=== PATIENT | male | born 1980 | race American Indian/Alaskan Native ===

== ENCOUNTER 2018-04-24 05:52 | Day surgery (SDC) | payer BC ==
[2018-04-17 08:46] VITALS: BMI 30.5
[2018-04-24] MEDS ORDERED: Lidocaine/Epinephrine 1% 1:100000 10 ML IJ ONE (07:20)
[2018-04-24] MEDS ORDERED: ceFAZolin IV 1 gm in Dextrose 2 GM/100 ML BAG IVPB ONE (07:20)
[2018-04-24] MEDS ORDERED: Bupivacaine 0.25% 20 ML INJ IJ ONE ×2 (07:20→07:31)
[2018-04-24] MEDS ORDERED: Bupivacaine HCl 0.5% PF (30 ml) Inj ONE (07:26)
[2018-04-24] MEDS ORDERED: Succinylcholine Chloride 20 mg/ml Syr (5 ml) IV ONE (08:32)
[2018-04-24] MEDS ORDERED: Propofol 10 mg/ml Inj (20 ML) ONE (08:32)
[2018-04-24] MEDS ORDERED: Rocuronium 10 mg/ml (5 ml) ONE ×2 (08:32→08:55)
[2018-04-24] MEDS ORDERED: Midazolam 2 MG/2 ML VIAL ONE (08:33)
[2018-04-24] MEDS ORDERED: Esmolol 100 mg/10ml Inj IV ONE (09:02)
[2018-04-24] MEDS ORDERED: Neostigmine Methylsulfate 3mg/3ml Syringe IV ONE (11:00)
[2018-04-24] MEDS ORDERED: HYDROmorphone 0.5 mg/0.5 ml ISec IVP PRN (11:19)
--- NOTE | 2018-04-24 11:20 | PCM.SURG1 ---
Surgeon's Initial Post Op Note - Surgeon's Notes Surgeon: Micah Adjudication Specialist: PGY4, Tammie CALLAWAY Type of Anesthesia: General Endo Pre-Operative Diagnosis: Umbilical hernia Operative Findings: Small umbilical hernia, small Left inguinal hernia Post-Operative Diagnosis: Umbilical hernia Operation Performed: Robotic assisted laparoscopic umbilical hernia repair with mesh Specimen/Specimens Removed: N/A Estimated Blood Loss: EBL {In ML}: 5 Blood Products Given: N/A Drains Used: No Drains Post-Op Condition: Good Date of Surgery/Procedure: 04/24/18 Time of Surgery/Procedure: 08:00
[2018-04-24] MEDS ORDERED: Oxycodone/Acetaminophen 5/325 mg Tab PO ONE (11:27)
[2018-04-24 13:14] VITALS: RESP 18
[2018-04-24] MEDS: Oxycodone/Acetaminophen 5/325 mg Tab PO ONE ×2 (13:16→13:17)
[2018-04-24 15:00] VITALS: BP 118/64; PULSE 72; TEMP 97.8; O2SAT 97
--- NOTE | 2018-04-24 22:05 | OP ---
PROCEDURE DATE: 04/24/2018 PREOPERATIVE DIAGNOSES: 1. Umbilical hernia. 2. Abdominal pain. POSTOPERATIVE DIAGNOSES: 1. Incarcerated umbilical hernia containing preperitoneal fat. 2. Morbid obesity. PROCEDURES DONE: 1. Robotic umbilical hernia repair with mesh. 2. Laparoscopic bilateral transverse abdominis plane block placement. SURGEON: Rangel Obrien MD ASSISTANTS: NILTON Gastelum and Kian Ram, PGY-4, resident. ANESTHESIA: General endotracheal tube anesthesia. ESTIMATED BLOOD LOSS: Around 10 mL. DRAINS: None. PATHOLOGY: None. COMPLICATIONS: None. INTRAOPERATIVE FINDINGS: The patient had an approximately 1 x 1 cm umbilical hernia containing preperitoneal fat, that was reduced back into the peritoneal cavity. DESCRIPTION OF PROCEDURE: On intraoperative steps, this is a 37-year-old male who was seen in the [place] [facility] for severe abdominal pain and the patient was diagnosed with umbilical hernia. The patient was seen in my office and was consented for robotic umbilical hernia repair with a mesh. Brought to the OR, placed supine on the operating table. After induction of the anesthesia, the abdomen was prepped and draped in the usual sterile fashion. A left upper quadrant incision was made using the Visiport technique. The peritoneal cavity was entered. The pneumo was created. Another 2-8 mm port was placed in the left upper quadrant and the left lower quadrant. Robot was brought in. Camera arm as well as arm 1 and arm 2 were docked. The pneumo was created underneath the peritoneum using the Veress needle to facilitate dissection. Now, the peritoneum was dissected and the dissection was carried down all the way on the right side, and the hernia sac and content was reduced back into the peritoneal cavity. Now, the defect was closed with #1 Prolene V-Loc suture in two layers. The 6 x 8 cm mesh was introduced and the mesh was placed. It was sutured with 3-0 PDS continuous suture. The defect in the peritoneum was closed with 3-0 PDS and part of the peritoneum was tacked against the mesh to prevent any seroma formation. After that, procedure was converted to laparoscopic. After removing the instrument and undocking the robot and bilateral TAP block was given, 30:30 mL of Marcaine was injected on the right and the left transverse abdominis muscle plane block. After that, all the ports were taken out under vision. Pneumo was deflated. Umbilical needle entry site as well as all the port sites were closed with 4-0 Monocryl, and dry sterile dressing was applied. The patient tolerated the procedure well. Count of instrument and gauze was correct. There was no apparent complication. During intraoperative exploration, the third part of the operation was laparoscopic exploration, the patient was found to have a left inguinal hernia that will be planned in the future for repair if it becomes symptomatic. Rangel Obrien, MDDD: 04/24/2018 11:28:38
== END 2018-04-24 15:00 | disposition home or self-care (01) ==
LOC: C.SDS 05:52
PROVIDERS: ATTEND Surgery Surgical Critical Care
DX: K42.0 Umbilical hernia with obstruction, without gangrene (principal); E66.01 Morbid (severe) obesity due to excess calories
CPT/HCPCS: 49653; 64488; J0690; J1170; J1885; J2001; J2250; J2405; J2704; J2710; J3010

== ENCOUNTER 2018-04-29 12:50 | Emergency (ER) | payer BC ==
[2018-04-29 12:50] VITALS: BMI 30.5
[2018-04-29 13:05] VITALS: TEMP 98.2
[2018-04-29] MEDS ORDERED: Sodium Chloride 0.9% 1,000 ML IV ONE (13:23)
--- NOTE | 2018-04-29 13:32 | C.PDOC ---
History Of Present Illness 37 y/o male presents to ED c/o worsening abdominal pain at incision site over the last 2 days. Pt had periumbilical hernia repair surgery on 04/24/[address] Obrien. Notes pain is 8/10 in severity. He reports one episode of burning on urination. He has been taking prescribed Percocet and Colace. Last BM was today. Denies fever, chills, or any other complaints at this time. Time Seen by Provider: 04/29/18 13:05 Chief Complaint (Nursing): Abdominal Pain History Per: Patient History/Exam Limitations: no limitations Onset/Duration Of Symptoms: Days Current Symptoms Are (Timing): Still Present Severity: Severe Pain Scale Rating Of: 8 Location Of Pain/Discomfort: Periumbilical Quality Of Discomfort: "Pain" Recent travel outside of the [place]: No Additional History Per: Patient Past Medical History Reviewed: Historical Data, Nursing Documentation, Vital Signs Vital Signs: Last Vital Signs Temp 98.2 F 04/29/18 13:05 Pulse 55 L 04/29/18 13:05 Resp BP 157/104 H 04/29/18 13:05 Pulse Ox 100 04/29/18 13:05 Surgical History: Appendectomy Family History: States: Unknown Family Hx - Social History Hx Alcohol Use: Yes Hx Substance Use: No - Immunization History Hx Tetanus Toxoid Vaccination: No Hx Influenza Vaccination: No Hx Pneumococcal Vaccination: No Review Of Systems Except As Marked, All Systems Reviewed And Found Negative. Constitutional: Negative for: Fever, Chills Cardiovascular: Negative for: Chest Pain, Palpitations Respiratory: Negative for: Shortness of Breath Gastrointestinal: Positive for: Abdominal Pain. Negative for: Nausea, Vomiting, Diarrhea, Constipation Genitourinary: Negative for: Dysuria, Frequency, Hematuria Musculoskeletal: Negative for: Back Pain Physical Exam - Physical Exam Appears: Non-toxic, No Acute Distress Skin: Normal Color, Warm, Dry Head: Atraumatic, Normacephalic Eye(s): bilateral: Normal Inspection, PERRL, EOMI Oral Mucosa: Moist Neck: Normal ROM, Supple Cardiovascular: Rhythm Regular, No Murmur, Other ( no M/G/R) Respiratory: Normal Breath Sounds, No Rales, No Rhonchi, No Wheezing, Other (good air movement) Gastrointestinal/Abdominal: Bowel Sounds (decreased bowel sounds), Soft, Tenderness (LLQ, suprapubic), Distention, No Guarding, No Rebound, Other (left periumbilical incision site is dry, clear, and intact) Back: No CVA Tenderness Extremity: Normal ROM Neurological/Psych: Oriented x3, Normal Speech ED Course And Treatment - Laboratory Results Result Diagrams: 04/29/18 13:40 04/29/18 13:40 O2 Sat by Pulse Oximetry: 100 (RA) Pulse Ox Interpretation: Normal Medical Decision Making Medical Decision Making: Plan: Blood work Urinalysis Obstructive series Morphine IV fliuds 14:[address] Obrien about pt workups, pt don't need CT scan, wants pt to stop taking the percocet and rx for lactulose and tramadol and will see pt on tuesday Disposition Discussed With DrShante: Rangel Obrien Doctor Will See Patient In The: Office Counseled Patient/Family Regarding: Studies Performed, Diagnosis, Need For Followup, Rx Given - Disposition Disposition: HOME/ ROUTINE Disposition Time: 15:29 Condition: STABLE Additional Instructions: Your surgeon, Dr. Obrien, wants you to stop taking Percocet and start taking Lactulose to help move your bowels more and Tramadol for pain, both of these prescriptions were provided to you today. Dr. Obrien also wants you to see you in his office on May 02 for a follow up visit.l Prescriptions: Lactulose 20 gm PO DAILY #150 ml traMADol [Ultram] 50 mg PO Q6H PRN #20 tab PRN Reason: Pain, Severe (8-10) Instructions: Postoperative Pain (DC), Managing Pain After Surgery Forms: [facility] (Par[place]ayan), General Discharge Instructions - POA Present On Arrival: None - Clinical Impression Clinical Impression: Post-operative pain - Scribe Statement The provider has reviewed the documentation as recorded by the Scribe KP All medical record entries made by the Scribe were at my direction and personally dictated by me. I have reviewed the chart and agree that the record accurately reflects my personal performance of the history, physical exam, medical decision making, and the department course for this patient. I have also personally directed, reviewed, and agree with the discharge instructions and disposition.
[2018-04-29 13:54] LABS: BASO % 0.4 % (0.0-2.0); EOS # 0.1 K/uL (0.0-0.7); EOS % 0.8 % (0.0-4.0); HEMOGLOBIN 15.4 g/dL (12.0-18.0); LYMPH # 0.7 K/uL (1.0-4.3); LYMPH % 7.6 % (20.0-40.0); MEAN CELL VOLUME 88.9 fL (80.0-94.0); MEAN CORPUSCULAR HEMOGLOBIN 29.9 pg (27.0-31.0); MEAN CORPUSCULAR HGB CONC 33.7 g/dL (33.0-37.0); MEAN PLATELET VOLUME 7.6 fL (7.2-11.7); MONO # 0.3 K/uL (0.0-0.8); MONO % 3.2 % (0.0-10.0); NEUT # 8.5 K/uL (1.8-7.0); PLATELET COUNT 269 K/uL (130-400); RBC 5.13 Mil/uL (4.40-5.90); RED CELL DISTRIBUTION WIDTH 13.5 % (11.5-14.5); WHITE BLOOD COUNT 9.7 K/uL (4.8-10.8)
--- NOTE | 2018-04-29 13:55 | RAD ---
Date of service: 04/29/2018 PROCEDURE: Radiographs of the chest and abdomen (obstructive series) HISTORY: abd pain COMPARISON: No prior. TECHNIQUE: AP radiograph of the chest, with upright and supine radiographs of the abdomen. FINDINGS: CHEST: Lungs: Clear. Cardiovascular: Normal size heart. No pulmonary vascular congestion. No aortic atherosclerotic calcification present Pleura: No pleural fluid. No pneumothorax. Other findings: None. ABDOMEN AND PELVIS: Bowel: The bowel gas pattern is nonspecific and nonobstructive. No evidence of differential air-fluid levels or mechanical obstruction. Free air: None. Bones: Unremarkable. Other findings: None. IMPRESSION: Nonspecific normal obstructive bowel gas pattern. Clear lungs.
[2018-04-29 14:11] LABS: ALB/GLOB RATIO 1.5 (1.0-2.1); ALBUMIN 4.8 g/dL (3.5-5.0); ALT/SGPT 42 U/L (21-72); AST/SGOT 42 U/L (17-59); BLOOD UREA NITROGEN 7 mg/dL (9-20); CALCIUM 9.7 mg/dl (8.6-10.4); GFR NON-AFRICAN AMERICAN > 60; LIPASE 102 U/L (23-300)
[2018-04-29 14:37] LABS: LYMPHOCYTE 9 % (20-40); MONOCYTE 2 % (0-10); NEUTROPHIL 89 % (50-75); PLATELET ESTIMATE NORMAL (NORMAL); TOTAL CELLS COUNTED 100
[2018-04-29 14:58] LABS: URINE BILIRUBIN NEGATIVE (NEGATIVE); URINE BLOOD NEGATIVE (NEGATIVE); URINE CLARITY Clear (Clear); URINE COLOR Yellow (YELLOW); URINE GLUCOSE (UA) NORMAL (Normal); URINE LEUKOCYTE ESTERASE NEG Leu/uL (Negative); URINE PROTEIN NEGATIVE (NEGATIVE)
[2018-04-29 15:19] VITALS: BP 138/84; PULSE 60; RESP 18
[2018-04-29 15:31] VITALS: O2SAT 100
== END 2018-04-29 15:42 | disposition home or self-care (01) ==
LOC: C.ER 12:50
DX: G89.18 Other acute postprocedural pain (principal)
CPT/HCPCS: 74022; 80053; 81001; 83690; 85025; 87086; 96361; 96374; 99285; J2270; J7030

== ENCOUNTER 2018-10-15 13:24 | Emergency (ER) | payer BC ==
[2018-10-15 13:36] VITALS: BMI 29.8
[2018-10-15 13:50] VITALS: TEMP 99
--- NOTE | 2018-10-15 13:51 | C.PDOC ---
History Of Present Illness 37 year old male presents to the emergency department with new onset left lower quadrant and left testicular pain for the last 3 days. Patient states that the pain initially started as waxing/waning, but now it occasionally radiates to his left testicle and left flank area. Patient denies UTI symptoms, hematuria, nausea, and vomiting. Patient reports having a bowel movement. Patient reports a history of hernia repair in August of 2018. Patient also reports taking Motrin this morning. NEW ONSET LLQ/L TEST PAIN X 3 DAYS. WAX WANE, NOW OCC RAD L TEST/L FLANK. NO UTI SX, HEMATURIA, NV. +BM. S/P VENTRAL HERNIA REPAIR 08/2018. SP MOTRIN THIS MORNING EXAM MILD DIST NONTOXIC ABD NEG FLANK NEG REMAINDER NEG Time Seen by Provider: 10/15/18 13:35 History Per: Patient History/Exam Limitations: no limitations Onset/Duration Of Symptoms: Days (3) Current Symptoms Are (Timing): Still Present Location Of Pain/Discomfort: LLQ, Other (left testicle) Radiation Of Pain To:: Flank (left) Quality Of Discomfort: "Pain" Associated Symptoms: denies: Fever, Chills, Nausea, Vomiting, Urinary Symptoms Past Medical History Reviewed: Historical Data, Nursing Documentation, Vital Signs Vital Signs: Last Vital Signs Temp 99 F 10/15/18 13:36 Pulse 90 10/15/18 13:36 Resp 18 10/15/18 13:36 BP 125/84 10/15/18 13:36 Pulse Ox 98 10/15/18 13:36 Primary Care Provider: Tommy Rogers - Medical History PMH: No Chronic Diseases Surgical History: Appendectomy Family History: States: Unknown Family Hx - Social History Hx Alcohol Use: Yes Hx Substance Use: No - Immunization History Hx Tetanus Toxoid Vaccination: No Hx Influenza Vaccination: No Hx Pneumococcal Vaccination: No Review Of Systems Constitutional: Negative for: Fever, Chills, Weakness Respiratory: Negative for: Cough, Shortness of Breath Gastrointestinal: Positive for: Abdominal Pain. Negative for: Nausea, Vomiting Genitourinary: Positive for: Scrotal Pain (left testicle). Negative for: Hematuria Physical Exam - Physical Exam Appears: Non-toxic, In Acute Distress (mild) Skin: Normal Color, Warm, Dry Head: Atraumatic, Normacephalic Eye(s): bilateral: Normal Inspection Nose: Normal Oral Mucosa: Moist Neck: Normal, Supple Chest: Symmetrical, No Tenderness Cardiovascular: Rhythm Regular, No Murmur Respiratory: Normal Breath Sounds, No Rales, No Rhonchi, No Wheezing Gastrointestinal/Abdominal: Soft, No Tenderness, No Guarding, No Rebound Back: Normal Inspection, No CVA Tenderness, No Vertebral Tenderness, No Paraspinal Tenderness Extremity: Normal ROM Neurological/Psych: Oriented x3, Normal Speech, Normal Cognition ED Course And Treatment - Laboratory Results Result Diagrams: 10/15/18 14:24 10/15/18 14:24 O2 Sat by Pulse Oximetry: 98 (RA) Pulse Ox Interpretation: Normal Progress Note: Plan: CT Abdomen and Pelvis. Chemistry. CBC. Flomax. NaCl IV Fluids. Lidocaine. Tylenol 975mg PO. Urinalysis Progress - Re-Evaluation Re-evaluation Note: 10/15/18 15:[address], LABS WNL NO ACUTE ABD - Data Reviewed Data Reviewed: Lab, Diagnostic imaging, Old records Disposition Counseled Patient/Family Regarding: Diagnosis, Need For Followup, Rx Given - Disposition Referrals: [facility] [Outside] [facility] [Outside] Disposition: HOME/ ROUTINE Disposition Time: 15:45 Condition: IMPROVED Prescriptions: Dicyclomine [Bentyl] 20 mg PO TID PRN #12 tab PRN Reason: Pain Instructions: Acute Abdomen (Belly Pain), Adult (DC) Forms: Work Excuse - Clinical Impression Clinical Impression: Abdominal colic - Scribe Statement The provider has reviewed the documentation as recorded by the Scribe (Shadi Parrish) Provider Attestation: All medical record entries made by the Scribe were at my direction and personally dictated by me. I have reviewed the chart and agree that the record accurately reflects my personal performance of the history, physical exam, medical decision making, and the department course for this patient. I have also personally directed, reviewed, and agree with the discharge instructions and disposition.
[2018-10-15] MEDS ORDERED: Lidocaine 150 MG in Sodium Chloride 0.9% 100 ML IV STA (13:52)
[2018-10-15] MEDS ORDERED: Sodium Chloride 0.9% 1,000 ML IV STA (13:52)
[2018-10-15] MEDS ORDERED: Sodium Chloride 0.9% 1,000 ML ONE (14:14)
[2018-10-15 14:37] LABS: BASO % 0.4 % (0.0-2.0); EOS # 0.1 K/uL (0.0-0.7); HEMOGLOBIN 15.4 g/dL (12.0-18.0); LYMPH # 1.6 K/uL (1.0-4.3); LYMPH % 20.2 % (20.0-40.0); MEAN CELL VOLUME 88.6 fL (80.0-94.0); MEAN CORPUSCULAR HEMOGLOBIN 30.4 pg (27.0-31.0); MEAN CORPUSCULAR HGB CONC 34.3 g/dL (33.0-37.0); MEAN PLATELET VOLUME 8.4 fL (7.2-11.7); MONO # 0.5 K/uL (0.0-0.8); MONO % 6.6 % (0.0-10.0); NEUT # 5.9 K/uL (1.8-7.0); NEUT % 71.8 % (50.0-75.0); RBC 5.06 Mil/uL (4.40-5.90); RED CELL DISTRIBUTION WIDTH 13.9 % (11.5-14.5); WHITE BLOOD COUNT 8.2 K/uL (4.8-10.8)
[2018-10-15 14:42] LABS: URINE BACTERIA RARE (<OCC); URINE BILIRUBIN NEGATIVE (NEGATIVE); URINE BLOOD NEGATIVE (NEGATIVE); URINE CLARITY Clear (Clear); URINE COLOR Yellow (YELLOW); URINE GLUCOSE (UA) NORMAL (Normal); URINE LEUKOCYTE ESTERASE NEG Leu/uL (Negative); URINE PROTEIN 1+ mg/dL (NEGATIVE); URINE UROBILINOGEN NORMAL mg/dL (0.2-1.0)
[2018-10-15 14:49] LABS: BLOOD UREA NITROGEN 14 mg/dL (9-20); CALCIUM 9.5 mg/dl (8.6-10.4); GFR NON-AFRICAN AMERICAN > 60
--- NOTE | 2018-10-15 15:24 | CT ---
Date of service: 10/15/2018 PROCEDURE: CT Abdomen and Pelvis without intravenous contrast HISTORY: abd pain L LQ/FLANK COMPARISON: None. TECHNIQUE: Axial and reformatted coronal and sagittal CT images of the abdomen and pelvis were obtained without IV or oral contrast administration.. Contrast dose: 0 Radiation dose: Total exam DLP = 859.5 mGy-cm. This CT exam was performed using one or more of the following dose reduction techniques: Automated exposure control, adjustment of the mA and/or kV according to patient size, and/or use of iterative reconstruction technique. FINDINGS: LOWER THORAX: Unremarkable. LIVER: Unremarkable. No gross lesion or ductal dilatation. GALLBLADDER AND BILE DUCTS: Unremarkable. PANCREAS: Unremarkable. No gross lesion or ductal dilatation. SPLEEN: Unremarkable. ADRENALS: Unremarkable. No mass. KIDNEYS AND URETERS: Unremarkable. No hydronephrosis. No solid mass. VASCULATURE: Unremarkable. No aortic aneurysm. No aortic atherosclerotic calcification or mural plaque present. BOWEL: Unremarkable. No obstruction. No gross mural thickening. APPENDIX: No evidence of appendicitis. PERITONEUM: Unremarkable. No free fluid. No free air. LYMPH NODES: Unremarkable. No enlarged lymph nodes. BLADDER: Unremarkable. REPRODUCTIVE: Unremarkable. BONES: No acute fracture. OTHER FINDINGS: None. IMPRESSION: No evidence of nephrolithiasis or hydronephrosis. Mildly enlarged mesenteric lymph nodes in the lower abdomen may represent mesenteric adenitis Otherwise, no CT evidence of acute pathology in the abdomen and pelvis noted in this noncontrast study.
[2018-10-15 15:46] VITALS: BP 117/75; PULSE 68; RESP 14
[2018-10-15 15:47] VITALS: O2SAT 98
== END 2018-10-15 16:01 | disposition home or self-care (01) ==
LOC: C.ER 13:24
DX: R10.84 Generalized abdominal pain (principal)
CPT/HCPCS: 74176; 80048; 81001; 85025; 96360; 99285; J2001; J7030